=== PATIENT | male | born 1960 | race Caucasian/White ===

== ENCOUNTER 2017-06-14 12:06 | Emergency (ER) | payer OTHER ==
[~2017-06-14] VITALS: Ht 175.3 cm; Wt 84.0 kg
[~2017-06-14 12:06] MED LIST: ADVIL200 MG PO; CLEOCIN300 MG PO; CLINDAMYCIN HC300 MG PO; COUMADIN5 MG PO; COUMADIN6 MG PO; PERCOCET 5/31 TABLET PO; TYLENOL WITH C1 EACH PO
[2017-06-14 13:02] LABS: HEMATOCRIT 50.3 % (38.0-50.0); MCH 28.1 PG (29.0-34.0); MCHC 31.8 G/DL (30.0-36.0); MCV 88.4 FL (86-99); MEAN PLAT.VOLUME 10.8 uM^3 (9.0-12.4); PLATELET COUNT 179 K/uL (156-360); RBC DIS.WIDTH-CV 14.6 % (11.8-14.6); RBC DIS.WIDTH-SD 47.2 % (39-53); RED BLOOD COUNT 5.69 M/uL (4.00-5.50); WHITE BLOOD COUNT 8.6 K/uL (4.1-10.2)
[2017-06-14 13:09] LABS: INTER. NORMALIZED RATIO 2.5; PROTHROMBIN TIME 28.9 SEC (10.2-12.9)
[2017-06-14 13:12] VITALS: BP 153/90
[2017-06-14 13:12] LABS: CHLORIDE 105 mEq/L (99-109); PTT 47.2 SEC (25-37); SODIUM 140 mEq/L (136-147)
[2017-06-14 13:14] LABS: GLUCOSE 100 mg/dL (70-99)
[2017-06-14 13:15] LABS: ANION GAP 10 MEQ/L (2-14)
[2017-06-14 13:17] LABS: ALKALINE PHOSPHATASE 96 IU/L (3-129)
[2017-06-14 13:18] LABS: GFR ESTIMATE (CALCULATED) > 59 mL/min/
[2017-06-14 13:19] LABS: UREA NITROGEN (BUN) 5 mg/dL (9-23)
[2017-06-14] MEDS ORDERED: FLEXERIL10 MG PO (13:45)
== END 2017-06-14 14:08 | disposition home or self-care (01) ==
LOC: EXP 12:06 → EME 12:06 → EXP 14:08
PROVIDERS: Nurse Practitioner Family
DX: M25.511 Pain in right shoulder (principal); S29.011A Strain of muscle and tendon of front wall of thorax, initial encounter; M94.0 Chondrocostal junction syndrome [Tietze]; Z79.01 Long term (current) use of anticoagulants; X50.0XXA Overexertion from strenuous movement or load, initial encounter; Z86.718 Personal history of other venous thrombosis and embolism; Z95.828 Presence of other vascular implants and grafts; F17.200 Nicotine dependence, unspecified, uncomplicated; Z71.6 Tobacco abuse counseling
CPT/HCPCS: 73030; 80053; 85027; 85379; 85610; 85730; 93005; 99281; 99284

== ENCOUNTER 2018-03-18 08:24 | Emergency (ER) | payer OTHER ==
[~2018-03-18] VITALS: Ht 175.3 cm; Wt 87.9 kg
[~2018-03-18 08:24] MED LIST changes: +FLEXERIL10 MG PO
[2018-03-18 09:57] LABS: BASOPHIL (%) 0.4 % (0-1); EOSINOPHIL (%) 5.4 % (0-5); EOSINOPHIL COUNT 0.3 K/uL (0-0.3); HEMATOCRIT 49.6 % (38.0-50.0); HEMOGLOBIN 16.9 G/DL (12.5-16.6); IMMATURE GRANULOCYTE (%) 0.2 % (0.0-0.7); LYMPHOCYTE (%) 22.5 % (15-42); LYMPHOCYTE COUNT 1.3 K/uL (1.0-2.8); MCH 32.1 PG (29.0-34.0); MCHC 34.1 G/DL (30.0-36.0); MCV 94.3 FL (86-99); MONOCYTE (%) 9.5 % (3-12); MONOCYTE COUNT 0.5 K/uL (0-0.8); NEUTROPHIL COUNT 3.5 K/uL (1.8-6.4); PLATELET COUNT 103 K/uL (156-360); RBC DIS.WIDTH-SD 45.5 % (39-53); RED BLOOD COUNT 5.26 M/uL (4.00-5.50); WHITE BLOOD COUNT 5.7 K/uL (4.1-10.2)
[2018-03-18 10:02] LABS: INTER. NORMALIZED RATIO 1.4
[2018-03-18 10:04] LABS: PTT 33.6 SEC (25-37)
[2018-03-18 10:20] LABS: ALBUMIN 4.3 G/DL (3.2-4.8); ALKALINE PHOSPHATASE 87 IU/L (3-129); ALT (GPT) 20 IU/L (3-49); AST (GOT) 20 IU/L (2-34); CHLORIDE 99 MEQ/L (99-109); CREATININE 0.8 MG/DL (0.6-1.3); GFR ESTIMATE (CALCULATED) > 59 mL/min/ (58.99-99999); GLUCOSE 105 mg/dL (70-99); MAGNESIUM 2.1 mg/dl (1.3-2.7); POTASSIUM 3.7 MEQ/L (3.7-5.4); SODIUM 138 MEQ/L (136-147); TOTAL BILIRUBIN 1.2 MG/DL (0.0-1.0); TOTAL PROTEIN 6.9 G/DL (6.4-8.3); TROP-I INTERPRETATION NEGATIVE; TROPONIN-I 0.01 ng/mL (0.0-0.30); UREA NITROGEN (BUN) 5 mg/dL (9-23)
[2018-03-18] MEDS ORDERED: PREDNISONE20 MG PO (11:25)
[2018-03-18] MEDS ORDERED: VENTOLIN HFA18 GM IH (11:25)
[2018-03-18 11:43] VITALS: BP 175/85
== END 2018-03-18 11:50 | disposition home or self-care (01) ==
LOC: EME 08:24
PROVIDERS: Emergency Medicine
DX: J20.9 Acute bronchitis, unspecified (principal); F17.200 Nicotine dependence, unspecified, uncomplicated; I10 Essential (primary) hypertension; Z87.01 Personal history of pneumonia (recurrent); Z86.718 Personal history of other venous thrombosis and embolism; Z79.01 Long term (current) use of anticoagulants
CPT/HCPCS: 71046; 80053; 83735; 83880; 84484; 85025; 85610; 85730; 93005; 94640; 94640 76; 99281; 99285; J7512

== ENCOUNTER 2018-04-19 16:03 | Emergency (ER) | payer OTHER ==
[~2018-04-19] VITALS: Ht 175.3 cm; Wt 90.7 kg
[~2018-04-19 16:03] MED LIST changes: +PREDNISONE20 MG PO; +VENTOLIN HFA18 GM IH
[2018-04-19 16:50] LABS: HEMATOCRIT 47.5 % (38.0-50.0); HEMOGLOBIN 16.2 G/DL (12.5-16.6); MCH 32.6 PG (29.0-34.0); MCHC 34.1 G/DL (30.0-36.0); MCV 95.6 FL (86-99); PLATELET COUNT 221 K/uL (156-360); RBC DIS.WIDTH-CV 13.2 % (11.8-14.6); RBC DIS.WIDTH-SD 46.8 % (39-53); RED BLOOD COUNT 4.97 M/uL (4.00-5.50); WHITE BLOOD COUNT 5.3 K/uL (4.1-10.2)
[2018-04-19 16:58] LABS: CHLORIDE 102 mEq/L (99-109); POTASSIUM 4.1 mEq/L (3.7-5.4); SODIUM 139 mEq/L (136-147)
[2018-04-19 17:00] LABS: GLUCOSE 101 mg/dL (70-99); PTT 102.2 SEC (25-37)
[2018-04-19 17:04] LABS: CREATININE 0.8 mg/dL (0.6-1.3); GFR ESTIMATE (CALCULATED) > 59 mL/min/ (58.99-99999)
[2018-04-19 17:05] LABS: UREA NITROGEN (BUN) 7 mg/dL (9-23)
[2018-04-19 17:11] LABS: INTER. NORMALIZED RATIO 15.8
[2018-04-19 17:43] LABS: APPEARANCE CLEAR ((CLEAR)); BILIRUBIN NEGATIVE; BLOOD NEGATIVE; COLOR STRAW ((YELLOW)); GLUCOSE (STRIP) NEGATIVE; KETONES NEGATIVE; LEUKOCYTES NEGATIVE; NITRITE NEGATIVE; PROTEIN (STRIP) NEGATIVE; SPECIFIC GRAVITY 1.005 (1.000-1.030); UCUL ADDED? NO; UROBILINOGEN 0.2 MG/DL (0.2-1.0)
[2018-04-19 18:30] VITALS: BP 151/96
== END 2018-04-19 19:09 | disposition home or self-care (01) ==
LOC: EME 16:03
PROVIDERS: Physician Assistant
DX: R79.1 Abnormal coagulation profile (principal); I82.422 Acute embolism and thrombosis of left iliac vein; I82.432 Acute embolism and thrombosis of left popliteal vein; I82.412 Acute embolism and thrombosis of left femoral vein; I82.812 Embolism and thrombosis of superficial veins of left lower extremity; Z79.01 Long term (current) use of anticoagulants
CPT/HCPCS: 80048; 81003; 85027; 85610; 85730; 93970; 99281; 99284